=== PATIENT | male | born 1970 | race Caucasian/White ===

== ENCOUNTER 2021-03-15 19:11 | Emergency (ER) | payer BC, MEDICAID ==
[~2021-03-15] VITALS: Ht 157.5 cm; Wt 74.0 kg
[2021-03-15] MEDS ORDERED: LIDOCAINE HCL/EPINEPHRINE 1%-EPI 1:100,000 20 ML VIAL INFIL ONE (19:45)
[2021-03-15] MEDS ORDERED: BACITRACIN ZINC OINT UDPKT TOP ONE (19:45)
[2021-03-15] MEDS ORDERED: IBUP-2029 MT (20:28)
[2021-03-15] MEDS ORDERED: SULF1TAB48 MT (20:28)
[2021-03-15] MEDS ORDERED: SULFAMETHOXAZOLE/TRIMETHOPRIM 800/160MG TABLET PO ONE (20:30)
[2021-03-15] MEDS ORDERED: IBUPROFEN 600MG TABLET PO ONE (21:00)
[2021-03-15] MEDS ORDERED: DIPHENHYDRAMINE 25MG CAPSULE PO ONE (21:30)
[2021-03-15 22:26] VITALS: BP 123/80
== END 2021-03-15 22:28 | disposition home or self-care (01) ==
LOC: ER 19:21
DX: L03.311 Cellulitis of abdominal wall (principal); I10 Essential (primary) hypertension; Z13.9 Encounter for screening, unspecified; Z88.1 Allergy status to other antibiotic agents
CPT/HCPCS: 10060; 87070; 87077; 87186; 87205; 99284; J3490; Q0163

== ENCOUNTER 2021-03-18 11:57 | Emergency (ER) | payer BC, MEDICAID ==
[~2021-03-18] VITALS: Ht 177.8 cm; Wt 80.0 kg
[~2021-03-18 11:57] MED LIST: IBUP-2029 MT; SULF1TAB48 MT
[2021-03-18 12:05] VITALS: BP 129/87
[2021-03-18] MEDS ORDERED: BACITRACIN ZINC OINT UDPKT TOP ONE (13:45)
[2021-03-18] MEDS ORDERED: MUPI1OIN4 TP (14:04)
== END 2021-03-18 14:15 | disposition home or self-care (01) ==
LOC: ER 11:57
DX: Z48.00 Encounter for change or removal of nonsurgical wound dressing (principal); I10 Essential (primary) hypertension; Z88.1 Allergy status to other antibiotic agents
CPT/HCPCS: 99283